=== PATIENT | male | born 1960 | race Caucasian/White ===

== ENCOUNTER 2016-12-01 18:04 | Emergency (ER) | payer OTHER ==
[~2016-12-01] VITALS: Ht 157.5 cm; Wt 64.8 kg
[~2016-12-01 18:04] MED LIST: ACYCLOVIR400 MG PO; AMLODIPINE BESYL5 MG PO; ASPIR-TRIN325 M1 PO; AVELOX400 MG PO; BENADRYL ALLERG25 MG PO; BENTYL20 MG PO; BLOOD PRESSURE PO; Bactrim,Septra DS 80 PO; CARAFATE1 GM PO; COLACE100 MG PO; COMBIVENT RESPIM4 GM IH; COZAAR50 MG PO; CYCLOBENZAPRINE5 MG PO; Combivent IH; DICYCLOMINE HCL20 MG PO; DILAUDID2 MG PO; DOXYCYCLINE HY100 M3 PO; DULCOLAX10 MG PR; ENDOCET 5-3251 EACH PO; FAMOTIDINE20 MG PO; FENOFIBRATE54 M1 PO; FINASTERIDE5 MG PO; GABAPENTIN600 MG PO; HYDROCHLOROTHIA25 MG PO; IRON325 MG PO; LEVOTHYROXINE50 MCG PO; LIDOCAINE700 MG TD; LIDODERM 5% P1 PATCH TD; LITE COAT ASPI325 M1 PO; LOPRESSOR25 MG PO; LOSARTAN POTAS100 MG PO; LOSARTAN POTASS50 MG PO; Levaquin PO; MEDROL DOSEPAK4 MG PO; MEDROL4 MG PO; METOCLOPRAMIDE10 MG PO; METOPROLOL TART25 MG PO; MOVANTIK12.5 MG PO; MYLICON,MYLANTA80 MG PO; NEURONTIN600 MG PO; NITROSTAT,NITR0.4 M1 SL; NOHOMEMEDS; Neurontin PO; OXYCODONE HCL10 MG PO; OXYCONTIN10 MG PO; OXYCONTIN15 MG PO; PANTOPRAZOLE SO40 MG PO; POLYETHYLENE GL17 GM PO; PREDNISONE20 MG PO; PREDNISONE50 MG PO; PROAIR RESPICL90 MCG IH; PROTONIX40 MG PO; Prilosec PO; Proventil,Ventolin H IH; REGLAN10 MG PO; REGLAN5 MG PO; ROBAXIN750 MG PO; Reglan PO; SUCRALFATE1 GM/10 ML PO; TAMSULOSIN HCL0.4 MG PO; TIROSINT50 MCG PO; TIZANIDINE HCL2 M1 PO; TOPROL XL25 MG PO; VALIUM5 MG PO; VENTOLIN HFA18 GM IH; Xanax PO; ZITHROMAX Z-PA250 MG PO; oxyCODONE PO
[2016-12-01 19:25] LABS: HEMATOCRIT 46.5 % (38.0-50.0); MCH 29.9 PG (29.0-34.0); MCHC 33.8 G/DL (30.0-36.0); MCV 88.6 FL (86-99); PLATELET COUNT 285 K/uL (156-360); RBC DIS.WIDTH-CV 13.2 % (11.8-14.6); RBC DIS.WIDTH-SD 42.3 % (39-53); RED BLOOD COUNT 5.25 M/uL (4.00-5.50); WHITE BLOOD COUNT 11.8 K/uL (4.1-10.2)
[2016-12-01 19:26] LABS: BASOPHIL COUNT 0.1 K/uL (0-0.1); EOSINOPHIL (%) 4.6 % (0-5); EOSINOPHIL COUNT 0.6 K/uL (0-0.3); IMMATURE GRANULOCYTE (%) 0.3 % (0.0-0.7); IMMATURE GRANULOCYTE COUNT 0.4 K/uL; LYMPHOCYTE COUNT 2.9 K/uL (1.0-2.8); MONOCYTE (%) 8.8 % (3-12); NEUTROPHIL COUNT 7.2 K/uL (1.8-6.4)
[2016-12-01 19:33] LABS: CHLORIDE 107 mEq/L (99-109); POTASSIUM 3.9 mEq/L (3.7-5.4); SODIUM 141 mEq/L (136-147)
[2016-12-01 19:35] LABS: GLUCOSE 95 mg/dL (70-99)
[2016-12-01 19:36] LABS: ANION GAP 12 MEQ/L (2-14)
[2016-12-01 19:37] LABS: TOTAL BILIRUBIN 0.4 mg/dL (0.0-1.0)
[2016-12-01 19:38] LABS: ALKALINE PHOSPHATASE 65 IU/L (3-129)
[2016-12-01 19:39] LABS: GFR ESTIMATE (CALCULATED) > 59 mL/min/
[2016-12-01 19:40] LABS: UREA NITROGEN (BUN) 11 mg/dL (9-23)
[2016-12-01] MEDS ORDERED: PERCOCET 5/31 TABLET PO (21:17)
[2016-12-01] MEDS ORDERED: MEDROL DOSEPAK4 MG PO (21:17)
[2016-12-01] MEDS ORDERED: BACTRIM,SEPT1 TABLET PO (21:17)
[2016-12-01 21:50] VITALS: BP 116/88
== END 2016-12-01 21:54 | disposition home or self-care (01) ==
LOC: EME 18:04
PROVIDERS: Emergency Medicine
DX: J01.40 Acute pansinusitis, unspecified (principal); K05.6 Periodontal disease, unspecified; R06.00 Dyspnea, unspecified; R09.89 Other specified symptoms and signs involving the circulatory and respiratory systems; K02.9 Dental caries, unspecified; R00.0 Tachycardia, unspecified; J44.9 Chronic obstructive pulmonary disease, unspecified; J45.909 Unspecified asthma, uncomplicated; I10 Essential (primary) hypertension; G89.29 Other chronic pain; Z89.611 Acquired absence of right leg above knee; Z79.891 Long term (current) use of opiate analgesic; Z79.82 Long term (current) use of aspirin; F17.200 Nicotine dependence, unspecified, uncomplicated; Z71.6 Tobacco abuse counseling
CPT/HCPCS: 70486; 80053; 83605; 85025; 93005; 99281; 99285; J1885; J2405; J7030

== ENCOUNTER 2017-08-27 15:29 | Observation (INO) | payer OTHER ==
[~2017-08-27] VITALS: Ht 157.5 cm; Wt 64.4 kg
[~2017-08-27 15:29] MED LIST changes: +BACTRIM,SEPT1 TABLET PO; -LITE COAT ASPI325 M1 PO; +LO-DOSE ASPIRIN81 M2 PO; +PERCOCET 5/31 TABLET PO
[2017-08-27 16:40] LABS: BASOPHIL COUNT 0.1 K/uL (0-0.1); EOSINOPHIL (%) 3.4 % (0-5); EOSINOPHIL COUNT 0.4 K/uL (0-0.3); HEMATOCRIT 43.4 % (38.0-50.0); IMMATURE GRANULOCYTE (%) 0.4 % (0.0-0.7); IMMATURE GRANULOCYTE COUNT 0.1 K/uL; INSTRUMENT ABS NEUTROPHIL CT 8.1 K/uL; LYMPHOCYTE COUNT 3.3 K/uL (1.0-2.8); MCH 31.2 PG (29.0-34.0); MCHC 33.6 G/DL (30.0-36.0); MCV 92.7 FL (86-99); MEAN PLAT.VOLUME 9.5 uM^3 (9.0-12.4); MONOCYTE (%) 7.7 % (3-12); NEUTROPHIL (%) 62.5 % (45-76); NEUTROPHIL COUNT 8.1 K/uL (1.8-6.4); PLATELET COUNT 262 K/uL (156-360); RBC DIS.WIDTH-CV 13.2 % (11.8-14.6); RBC DIS.WIDTH-SD 44.8 % (39-53); RED BLOOD COUNT 4.68 M/uL (4.00-5.50)
[2017-08-27 16:51] LABS: CHLORIDE 112 mEq/L (99-109); POTASSIUM 3.9 mEq/L (3.7-5.4); SODIUM 140 mEq/L (136-147)
[2017-08-27 16:53] LABS: GLUCOSE 80 mg/dL (70-99)
[2017-08-27 16:54] LABS: ANION GAP 12 MEQ/L (2-14)
[2017-08-27 16:57] LABS: GFR ESTIMATE (CALCULATED) > 59 mL/min/
[2017-08-27 16:58] LABS: UREA NITROGEN (BUN) 12 mg/dL (9-23)
[2017-08-27 17:02] LABS: TROP-I INTERPRETATION NEGATIVE; TROPONIN-I < 0.01 ng/mL (0.0-0.30)
[2017-08-27] MEDS ORDERED: LEVOTHYROXINE50 MCG PO (23:17)
[2017-08-28] VITALS (8 sets, daily range): BP systolic 89–143; BP diastolic 55–68
[2017-08-28 08:46] LABS: Estimated Average Glucose 120 mg/dL (70-123); HEMOGLOBIN A1c (GLYCOHEMOGLOB) 5.8 % HGB (Below 5.7)
[2017-08-28] MEDS ORDERED: ANTIVERT25 MG PO (13:13)
[2017-08-28] MEDS ORDERED: EAR DROPS15 ML RIGHT EAR (13:13)
[2017-08-28 14:22] LABS: BASOPHIL COUNT 0.1 K/uL (0-0.1); EOSINOPHIL (%) 4.9 % (0-5); EOSINOPHIL COUNT 0.4 K/uL (0-0.3); IMMATURE GRANULOCYTE (%) 0.5 % (0.0-0.7); MCH 31.9 PG (29.0-34.0); MCHC 34.4 G/DL (30.0-36.0); MCV 92.8 FL (86-99); MEAN PLAT.VOLUME 9.6 uM^3 (9.0-12.4); MONOCYTE (%) 7.5 % (3-12); MONOCYTE COUNT 0.6 K/uL (0-0.8); NEUTROPHIL (%) 49.7 % (45-76); PLATELET COUNT 255 K/uL (156-360); RBC DIS.WIDTH-CV 13.2 % (11.8-14.6); RBC DIS.WIDTH-SD 45.4 % (39-53); RED BLOOD COUNT 4.42 M/uL (4.00-5.50)
[2017-08-28 14:43] LABS: ANION GAP 9 MEQ/L (2-14); CHLORIDE 106 MEQ/L (99-109); GFR ESTIMATE (CALCULATED) > 59 mL/min/; POTASSIUM 3.8 MEQ/L (3.7-5.4); SAMPLE HEMOLYSIS CHECK 0; SAMPLE ICTERIC CHECK 0; SAMPLE LIPEMIA CHECK 0; SODIUM 140 MEQ/L (136-147); UREA NITROGEN (BUN) 13 mg/dL (9-23)
[2017-08-28 14:47] LABS: GLUCOSE 117 mg/dL (70-99)
[2017-08-29 00:25] VITALS: BP 106/51
[2017-08-29 04:19] VITALS: BP 128/58
[2017-08-29 08:47] VITALS: BP 150/67
[2017-08-29 12:18] VITALS: BP 141/71
== END 2017-08-29 14:45 | disposition home or self-care (01) ==
LOC: EME 15:29 → EDOF 23:13 → 5WEST 23:13 → EDOF 23:13 → ENRESERV 23:21 → 5WEST 08-28 00:51
PROVIDERS: Emergency Medicine; Hospitalist
DX: R51 Headache (principal); R20.0 Anesthesia of skin; H91.93 Unspecified hearing loss, bilateral; H61.23 Impacted cerumen, bilateral; R42 Dizziness and giddiness; G89.29 Other chronic pain; J44.9 Chronic obstructive pulmonary disease, unspecified; E03.9 Hypothyroidism, unspecified; I10 Essential (primary) hypertension; E78.5 Hyperlipidemia, unspecified; E11.69 Type 2 diabetes mellitus with other specified complication; I73.9 Peripheral vascular disease, unspecified; I25.10 Atherosclerotic heart disease of native coronary artery without angina pectoris; K21.0 Gastro-esophageal reflux disease with esophagitis; Z86.718 Personal history of other venous thrombosis and embolism; J32.9 Chronic sinusitis, unspecified; Z86.19 Personal history of other infectious and parasitic diseases; Z89.611 Acquired absence of right leg above knee; F17.210 Nicotine dependence, cigarettes, uncomplicated; F10.11 Alcohol abuse, in remission; Z82.49 Family history of ischemic heart disease and other diseases of the circulatory system; Z79.82 Long term (current) use of aspirin; E87.8 Other disorders of electrolyte and fluid balance, not elsewhere classified; Z88.0 Allergy status to penicillin; Z88.1 Allergy status to other antibiotic agents; Z88.5 Allergy status to narcotic agent; Z91.041 Radiographic dye allergy status
CPT/HCPCS: 70450; 70551; 80048; 82465; 83036; 84484; 85025; 93005; 93880; 94640; 94640 76; 99202; 99281; 99285; G0378; J1170; J1650; J7050

== ENCOUNTER 2018-03-22 23:33 | Observation (INO) | payer OTHER ==
[~2018-03-22] VITALS: Ht 167.6 cm; Wt 68.0 kg
[~2018-03-22 23:33] MED LIST changes: +ANTIVERT25 MG PO; +EAR DROPS15 ML RIGHT EAR
[2018-03-22 23:55] LABS: HEMATOCRIT 43.4 % (38.0-50.0); HEMOGLOBIN 14.9 G/DL (12.5-16.6); MCH 31.8 PG (29.0-34.0); MCHC 34.3 G/DL (30.0-36.0); MCV 92.7 FL (86-99); PLATELET COUNT 274 K/uL (156-360); RBC DIS.WIDTH-CV 13.3 % (11.8-14.6); RBC DIS.WIDTH-SD 45.4 % (39-53); RED BLOOD COUNT 4.68 M/uL (4.00-5.50)
[2018-03-23 00:05] LABS: CHLORIDE 105 mEq/L (99-109); SODIUM 140 mEq/L (136-147)
[2018-03-23 00:07] LABS: GLUCOSE 151 mg/dL (70-99)
[2018-03-23 00:09] LABS: TOTAL BILIRUBIN 0.3 mg/dL (0.0-1.0)
[2018-03-23 00:11] LABS: ALKALINE PHOSPHATASE 79 IU/L (3-129); GFR ESTIMATE (CALCULATED) > 59 mL/min/ (58.99-99999)
[2018-03-23 00:12] LABS: UREA NITROGEN (BUN) 21 mg/dL (9-23)
[2018-03-23 00:13] LABS: AST (GOT) 12 IU/L (2-34)
[2018-03-23 00:14] LABS: ALT (GPT) 35 IU/L (3-49)
[2018-03-23 01:58] LABS: LIPASE 36 U/L (1.0-51.0)
[2018-03-23 02:24] LABS: APPEARANCE CLEAR ((CLEAR)); BILIRUBIN NEGATIVE; BLOOD NEGATIVE; COLOR YELLOW ((YELLOW)); GLUCOSE (STRIP) NEGATIVE; KETONES NEGATIVE; LEUKOCYTES NEGATIVE; NITRITE NEGATIVE; PROTEIN (STRIP) NEGATIVE; SPECIFIC GRAVITY 1.008 (1.000-1.030); UCUL ADDED? NO; UROBILINOGEN 0.2 MG/DL (0.2-1.0)
[2018-03-23] MEDS ORDERED: LEVOCETIRIZINE D5 MG PO (05:29)
[2018-03-23] MEDS ORDERED: OXYCODONE HCL10 MG PO (05:30)
[2018-03-23] MEDS ORDERED: OXYCONTIN15 MG PO (05:31)
[2018-03-23 05:45] VITALS: BP 109/66
[2018-03-23 07:37] VITALS: BP 109/52
[2018-03-23 09:37] LABS: BASOPHIL (%) 0.6 % (0-1); BASOPHIL COUNT 0.1 K/uL (0-0.1); EOSINOPHIL (%) 3.9 % (0-5); EOSINOPHIL COUNT 0.6 K/uL (0-0.3); HEMATOCRIT 43.2 % (38.0-50.0); HEMOGLOBIN 14.1 G/DL (12.5-16.6); IMMATURE GRANULOCYTE (%) 0.6 % (0.0-0.7); LYMPHOCYTE (%) 24.1 % (15-42); LYMPHOCYTE COUNT 3.5 K/uL (1.0-2.8); MCH 30.6 PG (29.0-34.0); MCHC 32.6 G/DL (30.0-36.0); MCV 93.7 FL (86-99); MONOCYTE (%) 8.1 % (3-12); MONOCYTE COUNT 1.2 K/uL (0-0.8); NEUTROPHIL (%) 62.7 % (45-76); NEUTROPHIL COUNT 9.1 K/uL (1.8-6.4); PLATELET COUNT 263 K/uL (156-360); RBC DIS.WIDTH-CV 13.4 % (11.8-14.6); RBC DIS.WIDTH-SD 45.6 % (39-53); RED BLOOD COUNT 4.61 M/uL (4.00-5.50); WHITE BLOOD COUNT 14.5 K/uL (4.1-10.2)
[2018-03-23 12:03] VITALS: BP 96/58
[2018-03-23 20:54] VITALS: BP 94/54
[2018-03-24] VITALS: BP 103/61
[2018-03-24 04:00] VITALS: BP 92/62
[2018-03-24 05:26] LABS: HEMATOCRIT 38.3 % (38.0-50.0); HEMOGLOBIN 12.7 G/DL (12.5-16.6); MCH 31.2 PG (29.0-34.0); MCHC 33.2 G/DL (30.0-36.0); MCV 94.1 FL (86-99); PLATELET COUNT 240 K/uL (156-360); RBC DIS.WIDTH-CV 13.3 % (11.8-14.6); RBC DIS.WIDTH-SD 45.8 % (39-53); RED BLOOD COUNT 4.07 M/uL (4.00-5.50); WHITE BLOOD COUNT 9.7 K/uL (4.1-10.2)
[2018-03-24 05:53] LABS: CHLORIDE 108 MEQ/L (99-109); CREATININE 1.3 MG/DL (0.6-1.3); GFR ESTIMATE (CALCULATED) > 59 mL/min/ (58.99-99999); POTASSIUM 4.2 MEQ/L (3.7-5.4); SODIUM 138 MEQ/L (136-147); UREA NITROGEN (BUN) 23 mg/dL (9-23)
[2018-03-24 06:21] LABS: GLUCOSE 98 mg/dL (70-99)
[2018-03-24 07:07] VITALS: BP 94/58
[2018-03-24 07:56] LABS: THYROTROPIN (TSH) 5.1 MIU/L (0.4-5.5)
[2018-03-24] MEDS ORDERED: TAMSULOSIN HCL0.4 MG PO (09:31)
[2018-03-24] MEDS ORDERED: FLONASE16 G1 BOTH NARES (11:27)
== END 2018-03-24 13:21 | disposition home or self-care (01) ==
LOC: EME 23:33 → EDOF 03-23 04:20 → ENRESERV 03-23 04:22 → 4SOUTH 03-23 05:36
PROVIDERS: Hospitalist; Internal Medicine; Physician Assistant Medical
DX: R33.9 Retention of urine, unspecified (principal); R10.84 Generalized abdominal pain; E11.51 Type 2 diabetes mellitus with diabetic peripheral angiopathy without gangrene; I11.0 Hypertensive heart disease with heart failure; I50.9 Heart failure, unspecified; E78.5 Hyperlipidemia, unspecified; I25.10 Atherosclerotic heart disease of native coronary artery without angina pectoris; E03.9 Hypothyroidism, unspecified; J44.9 Chronic obstructive pulmonary disease, unspecified; K21.9 Gastro-esophageal reflux disease without esophagitis; G89.21 Chronic pain due to trauma; F10.21 Alcohol dependence, in remission; Z89.611 Acquired absence of right leg above knee; Z98.1 Arthrodesis status; Z86.718 Personal history of other venous thrombosis and embolism; Z90.49 Acquired absence of other specified parts of digestive tract; Z87.891 Personal history of nicotine dependence; Z86.19 Personal history of other infectious and parasitic diseases; Z99.3 Dependence on wheelchair; Z79.4 Long term (current) use of insulin; Z79.82 Long term (current) use of aspirin; Z82.49 Family history of ischemic heart disease and other diseases of the circulatory system; Z88.5 Allergy status to narcotic agent; Z88.1 Allergy status to other antibiotic agents; Z88.0 Allergy status to penicillin
CPT/HCPCS: 74176; 80048; 80053; 81003; 82948; 83690; 84443; 85025; 85027; 94640; 94640 76; 99202; 99281; 99285; G0378; J1644; J2405; J2765; J3010; J7030; S0030

== ENCOUNTER 2018-05-15 12:02 | Inpatient (IN) | payer OTHER ==
[~2018-05-15] VITALS: Ht 157.5 cm; Wt 70.4 kg
[~2018-05-15 12:02] MED LIST changes: +FLONASE16 G1 BOTH NARES; +LEVOCETIRIZINE D5 MG PO
[2018-05-15 13:11] LABS: BASOPHIL (%) 0.5 % (0-1); BASOPHIL COUNT 0.1 K/uL (0-0.1); EOSINOPHIL (%) 3.7 % (0-5); EOSINOPHIL COUNT 0.6 K/uL (0-0.3); HEMATOCRIT 39.9 % (38.0-50.0); HEMOGLOBIN 13.9 G/DL (12.5-16.6); IMMATURE GRANULOCYTE (%) 0.6 % (0.0-0.7); LYMPHOCYTE (%) 16.8 % (15-42); LYMPHOCYTE COUNT 2.9 K/uL (1.0-2.8); MCH 31.9 PG (29.0-34.0); MCHC 34.8 G/DL (30.0-36.0); MCV 91.5 FL (86-99); MONOCYTE (%) 8.4 % (3-12); MONOCYTE COUNT 1.5 K/uL (0-0.8); NEUTROPHIL COUNT 12.3 K/uL (1.8-6.4); PLATELET COUNT 246 K/uL (156-360); RBC DIS.WIDTH-CV 13.2 % (11.8-14.6); RBC DIS.WIDTH-SD 44.5 % (39-53); RED BLOOD COUNT 4.36 M/uL (4.00-5.50); WHITE BLOOD COUNT 17.5 K/uL (4.1-10.2)
[2018-05-15 13:19] LABS: PTT 27.6 SEC (25-37)
[2018-05-15 13:22] LABS: ALBUMIN 3.8 g/dL (3.2-4.8); CHLORIDE 108 mEq/L (99-109); POTASSIUM 3.8 mEq/L (3.7-5.4); SODIUM 142 mEq/L (136-147)
[2018-05-15 13:24] LABS: GLUCOSE 136 mg/dL (70-99)
[2018-05-15 13:25] LABS: TOTAL PROTEIN 6.7 g/dL (6.4-8.3)
[2018-05-15 13:26] LABS: TOTAL BILIRUBIN 0.2 mg/dL (0.0-1.0)
[2018-05-15 13:28] LABS: ALKALINE PHOSPHATASE 75 IU/L (3-129); CREATININE 1.2 mg/dL (0.6-1.3); GFR ESTIMATE (CALCULATED) > 59 mL/min/ (58.99-99999)
[2018-05-15 13:29] LABS: UREA NITROGEN (BUN) 19 mg/dL (9-23)
[2018-05-15 13:30] LABS: AST (GOT) 12 IU/L (2-34)
[2018-05-15 13:31] LABS: ALT (GPT) 19 IU/L (3-49); LIPASE 39 U/L (1.0-51.0)
[2018-05-15 13:32] LABS: TROP-I INTERPRETATION NEGATIVE; TROPONIN-I < 0.01 ng/mL (0.0-0.30)
[2018-05-15 15:30] LABS: APPEARANCE CLEAR ((CLEAR)); BILIRUBIN NEGATIVE; BLOOD NEGATIVE; COLOR YELLOW ((YELLOW)); GLUCOSE (STRIP) NEGATIVE; KETONES NEGATIVE; LEUKOCYTES NEGATIVE; NITRITE NEGATIVE; PROTEIN (STRIP) NEGATIVE; UCUL ADDED? NO; UROBILINOGEN 0.2 MG/DL (0.2-1.0)
[2018-05-15] MEDS ORDERED: FLOMAX0.4 MG PO (16:51)
[2018-05-15] MEDS ORDERED: CRESTOR20 MG PO (16:52)
[2018-05-15] MEDS ORDERED: METOPROLOL SUCC25 MG PO (16:52)
[2018-05-15 17:07] LABS: DIRECT BILIRUBIN 0.1 mg/dL (0.0-0.3)
[2018-05-15 17:19] LABS: ERTH.SED.RATE 45 MM/HR (0-20)
[2018-05-15 19:55] VITALS: BP 133/60
[2018-05-15 23:17] VITALS: BP 113/56
[2018-05-16 07:29] LABS: ALKALINE PHOSPHATASE 50 IU/L (3-129); ALT (GPT) 12 IU/L (3-49); AST (GOT) 10 IU/L (2-34); CHLORIDE 111 MEQ/L (99-109); GFR ESTIMATE (CALCULATED) > 59 mL/min/ (58.99-99999); POTASSIUM 4.1 MEQ/L (3.7-5.4); SODIUM 139 MEQ/L (136-147); UREA NITROGEN (BUN) 17 mg/dL (9-23)
[2018-05-16 07:35] LABS: BASOPHIL (%) 0.4 % (0-1); BASOPHIL COUNT 0.1 K/uL (0-0.1); EOSINOPHIL (%) 4.8 % (0-5); EOSINOPHIL COUNT 0.6 K/uL (0-0.3); GLUCOSE 96 mg/dL (70-99); HEMATOCRIT 36.8 % (38.0-50.0); HEMOGLOBIN 12.1 G/DL (12.5-16.6); IMMATURE GRANULOCYTE (%) 0.6 % (0.0-0.7); LYMPHOCYTE (%) 25.9 % (15-42); LYMPHOCYTE COUNT 3.2 K/uL (1.0-2.8); MCH 30.8 PG (29.0-34.0); MCHC 32.9 G/DL (30.0-36.0); MCV 93.6 FL (86-99); MONOCYTE (%) 9.5 % (3-12); MONOCYTE COUNT 1.2 K/uL (0-0.8); NEUTROPHIL (%) 58.8 % (45-76); NEUTROPHIL COUNT 7.3 K/uL (1.8-6.4); PLATELET COUNT 223 K/uL (156-360); RBC DIS.WIDTH-CV 13.5 % (11.8-14.6); RBC DIS.WIDTH-SD 46.2 % (39-53); RED BLOOD COUNT 3.93 M/uL (4.00-5.50); TOTAL BILIRUBIN 0.3 MG/DL (0.0-1.0); TOTAL PROTEIN 5.1 G/DL (6.4-8.3); WHITE BLOOD COUNT 12.5 K/uL (4.1-10.2)
[2018-05-16 08:02] VITALS: BP 108/75
[2018-05-16 15:25] LABS: CSF PROTEIN 76 mg/dL (15-45)
[2018-05-16 15:41] LABS: APPEARANCE CLEAR/COLORLESS; CSF TUBE NUMBER TUBE #4
[2018-05-16 15:42] LABS: CSF EOSINOPHILS ND % (0-25); MONONUCLEAR WBC'S ND % (50-90); POLYNUCLEAR WBC'S ND % (0-3); RED CELL COUNT 32 /MM^3 (0-1); WHITE CELL COUNT 2 /MM^3 (0-5)
[2018-05-16 15:56] LABS: CSF LDH < 25 IU/L
[2018-05-16 15:57] LABS: GLUCOSE, CSF 68 mg/dL (40-80)
[2018-05-16 16:26] LABS: APPEARANCE (RECHECK) CLEAR/COLORLESS; CSF TUBE NUMBER (RECHECK) TUBE #1
[2018-05-16 16:27] LABS: RED CELL COUNT (RECHECK) 33 /MM^3 (0-1)
[2018-05-16 17:03] VITALS: BP 110/70
[2018-05-17 00:14] VITALS: BP 117/66
[2018-05-17 01:17] LABS: APPEARANCE CLEAR ((CLEAR)); BILIRUBIN NEGATIVE; BLOOD NEGATIVE; COLOR STRAW ((YELLOW)); GLUCOSE (STRIP) NEGATIVE; KETONES NEGATIVE; LEUKOCYTES NEGATIVE; NITRITE NEGATIVE; PROTEIN (STRIP) NEGATIVE; UCUL ADDED? NO; UROBILINOGEN 0.2 MG/DL (0.2-1.0)
[2018-05-17 02:40] LABS: BENZODIAZEPINES, URINE SCREEN Negative (200 ng/mL)
[2018-05-17 05:29] LABS: C-REACTIVE PROTEIN 65.4 MG/L (0-10); CREATININE 0.8 MG/DL (0.6-1.3); GFR ESTIMATE (CALCULATED) > 59 mL/min/ (58.99-99999)
[2018-05-17 07:59] VITALS: BP 108/62
[2018-05-17 08:21] LABS: CHLORIDE 109 MEQ/L (99-109); GLUCOSE 101 mg/dL (70-99); POTASSIUM 3.8 MEQ/L (3.7-5.4); SODIUM 139 MEQ/L (136-147); UREA NITROGEN (BUN) 12 mg/dL (9-23)
[2018-05-17 09:54] LABS: HEMATOCRIT 35.7 % (38.0-50.0); HEMOGLOBIN 11.8 G/DL (12.5-16.6); MCH 30.6 PG (29.0-34.0); MCHC 33.1 G/DL (30.0-36.0); MCV 92.5 FL (86-99); PLATELET COUNT 203 K/uL (156-360); RBC DIS.WIDTH-CV 13.2 % (11.8-14.6); RBC DIS.WIDTH-SD 44.8 % (39-53); RED BLOOD COUNT 3.86 M/uL (4.00-5.50); WHITE BLOOD COUNT 9.6 K/uL (4.1-10.2)
== END 2018-05-17 13:30 | disposition home or self-care (01) | DRG 864 ==
LOC: EME 12:02 → 5SOUTH 16:00 → EDOF 16:00 → CANRESERV 16:02 → ENRESERV 16:02 → 5SOUTH 19:03
PROVIDERS: Emergency Medicine; Hospitalist; Internal Medicine; Internal Medicine Infectious Disease; Physician Assistant; Specialist
PROC: 009U3ZX Drainage of Spinal Canal, Percutaneous Approach, Diagnostic (ICD-10-PCS; principal; 2018-05-16)
DX: R50.9 Fever, unspecified (principal); R41.82 Altered mental status, unspecified; D72.829 Elevated white blood cell count, unspecified; R65.10 Systemic inflammatory response syndrome (SIRS) of non-infectious origin without acute organ dysfunction; Z89.611 Acquired absence of right leg above knee; Z86.73 Personal history of transient ischemic attack (TIA), and cerebral infarction without residual deficits; I11.0 Hypertensive heart disease with heart failure; I50.9 Heart failure, unspecified; I25.10 Atherosclerotic heart disease of native coronary artery without angina pectoris; E11.51 Type 2 diabetes mellitus with diabetic peripheral angiopathy without gangrene; K21.9 Gastro-esophageal reflux disease without esophagitis; J44.9 Chronic obstructive pulmonary disease, unspecified; G89.29 Other chronic pain; Z66 Do not resuscitate; E03.9 Hypothyroidism, unspecified; E78.5 Hyperlipidemia, unspecified; F17.210 Nicotine dependence, cigarettes, uncomplicated; J32.9 Chronic sinusitis, unspecified; Z79.82 Long term (current) use of aspirin; Z86.718 Personal history of other venous thrombosis and embolism; Z79.891 Long term (current) use of opiate analgesic
CPT/HCPCS: 62270; 70450; 70551; 71045; 77003; 80048; 80053; 80202; 80306 90; 81003; 82248; 82565; 82945; 82948; 83036; 83605; 83615 91; 83690; 84157; 84484; 85025; 85027; 85610; 85651; 85730; 86140; 87040; 87070; 87102; 87116; 87205; 87206; 89051; 93005; 94640; 94799; J0696; J1644; J1815; J3370; J7030

== ENCOUNTER 2018-06-11 20:03 | Emergency (ER) | payer OTHER ==
[~2018-06-11] VITALS: Ht 157.5 cm; Wt 63.7 kg
[~2018-06-11 20:03] MED LIST changes: +CRESTOR20 MG PO; +FLOMAX0.4 MG PO; +METOPROLOL SUCC25 MG PO
[2018-06-11 20:44] LABS: HEMATOCRIT 43.2 % (38.0-50.0); HEMOGLOBIN 15.3 G/DL (12.5-16.6); MCH 31.4 PG (29.0-34.0); MCHC 35.4 G/DL (30.0-36.0); MCV 88.5 FL (86-99); PLATELET COUNT 271 K/uL (156-360); RBC DIS.WIDTH-CV 12.8 % (11.8-14.6); RBC DIS.WIDTH-SD 41.4 % (39-53); RED BLOOD COUNT 4.88 M/uL (4.00-5.50); WHITE BLOOD COUNT 11.8 K/uL (4.1-10.2)
[2018-06-11 20:52] LABS: ALBUMIN 4.2 g/dL (3.2-4.8); CHLORIDE 107 mEq/L (99-109); POTASSIUM 3.9 mEq/L (3.7-5.4); SODIUM 138 mEq/L (136-147)
[2018-06-11 20:54] LABS: GLUCOSE 106 mg/dL (70-99); TOTAL PROTEIN 7.8 g/dL (6.4-8.3)
[2018-06-11 20:56] LABS: TOTAL BILIRUBIN 0.5 mg/dL (0.0-1.0)
[2018-06-11 20:58] LABS: ALKALINE PHOSPHATASE 89 IU/L (3-129); CREATININE 0.9 mg/dL (0.6-1.3); GFR ESTIMATE (CALCULATED) > 59 mL/min/ (58.99-99999)
[2018-06-11 20:59] LABS: UREA NITROGEN (BUN) 10 mg/dL (9-23)
[2018-06-11 21:00] LABS: AST (GOT) 21 IU/L (2-34)
[2018-06-11 21:01] LABS: ALT (GPT) 23 IU/L (3-49); LIPASE 30 U/L (1.0-51.0)
[2018-06-11 21:02] LABS: TROP-I INTERPRETATION NEGATIVE; TROPONIN-I < 0.01 ng/mL (0.0-0.30)
[2018-06-11 21:08] LABS: APPEARANCE CLEAR ((CLEAR)); BILIRUBIN NEGATIVE; BLOOD NEGATIVE; COLOR YELLOW ((YELLOW)); GLUCOSE (STRIP) NEGATIVE; KETONES NEGATIVE; LEUKOCYTES NEGATIVE; NITRITE NEGATIVE; PROTEIN (STRIP) NEGATIVE; SPECIFIC GRAVITY 1.014 (1.000-1.030); UROBILINOGEN 0.2 MG/DL (0.2-1.0)
[2018-06-11] MEDS ORDERED: BENTYL10 MG PO (22:14)
[2018-06-11] MEDS ORDERED: ZOFRAN ODT4 MG PO (22:14)
[2018-06-11 22:59] VITALS: BP 128/90
== END 2018-06-11 23:01 | disposition home or self-care (01) ==
LOC: EME → EDBD 20:03 → EME 20:03
PROVIDERS: Nurse Practitioner Family
DX: R10.84 Generalized abdominal pain (principal); R53.83 Other fatigue; G89.29 Other chronic pain; R11.2 Nausea with vomiting, unspecified; J44.9 Chronic obstructive pulmonary disease, unspecified; I11.0 Hypertensive heart disease with heart failure; I50.9 Heart failure, unspecified; M79.7 Fibromyalgia; I25.10 Atherosclerotic heart disease of native coronary artery without angina pectoris; K21.9 Gastro-esophageal reflux disease without esophagitis; F41.9 Anxiety disorder, unspecified; F17.200 Nicotine dependence, unspecified, uncomplicated; Z86.73 Personal history of transient ischemic attack (TIA), and cerebral infarction without residual deficits; Z90.49 Acquired absence of other specified parts of digestive tract; Z89.611 Acquired absence of right leg above knee; Z88.0 Allergy status to penicillin; Z88.1 Allergy status to other antibiotic agents; Z88.5 Allergy status to narcotic agent; Z91.041 Radiographic dye allergy status
CPT/HCPCS: 74177; 80053; 81003; 83690; 84484; 85027; 99281; 99284; J1200; J2405; J3010; J7030

== ENCOUNTER 2018-07-02 06:22 | Day surgery (SDC) | payer OTHER ==
[~2018-07-02] VITALS: Ht 157.5 cm; Wt 64.4 kg
[~2018-07-02 06:22] MED LIST changes: +ALBUTEROL2.5 MG/3 M IH; +BENTYL10 MG PO; +TUMS500 MG PO; +ZOFRAN ODT4 MG PO
== END 2018-07-02 12:05 | disposition home or self-care (01) ==
LOC: CATH 06:22
PROVIDERS: Surgery
PROC: 047 Lower Arteries, Dilation (ICD-10-PCS; principal; 2018-07-02)
DX: I70.212 Atherosclerosis of native arteries of extremities with intermittent claudication, left leg (principal); K21.9 Gastro-esophageal reflux disease without esophagitis; E78.00 Pure hypercholesterolemia, unspecified; E11.9 Type 2 diabetes mellitus without complications; I11.0 Hypertensive heart disease with heart failure; I50.9 Heart failure, unspecified; J45.909 Unspecified asthma, uncomplicated; Z88.0 Allergy status to penicillin; Z88.5 Allergy status to narcotic agent; Z88.1 Allergy status to other antibiotic agents; Z88.8 Allergy status to other drugs, medicaments and biological substances; F17.200 Nicotine dependence, unspecified, uncomplicated; Z79.82 Long term (current) use of aspirin
CPT/HCPCS: 82948; C1725; C1760; C1769; C1876; C1894; J1200; J1644; J2250; J2765; J2930; J3010; S0020